=== PATIENT | female | born 1965 | race Caucasian/White ===

== ENCOUNTER → 2017-01-11 | Outpatient (CLI) | payer BC ==
[2016-08-09 09:00] VITALS: BP 126/90
[2017-01-11 07:43] LABS: BLOOD UREA NITROGEN 9 mg/dL (7-18); CALCIUM 8.9 mg/dL (8.5-10.1); CARBON DIOXIDE 26.5 mmol/L (21-32); CHLORIDE 103 mmol/L (98-107); CREATININE 0.78 mg/dL (0.55-1.02); GLUCOSE 94 mg/dL (65-99); SODIUM 138 mmol/L (136-145); eGFR BLACK RACES > 60 (>60); eGFR NON BLACK RACES > 60 (>60)
== END ==
LOC: LAB 07:00
PROVIDERS: ATTEND Internal Medicine Endocrinology, Diabetes & Metabolism
DX: E87.6 Hypokalemia (principal)
CPT/HCPCS: 36415; 80048

== ENCOUNTER → 2017-04-18 | Outpatient (CLI) | payer BC ==
[2016-08-09 09:00] VITALS: BP 126/90
[2017-04-18 08:52] LABS: BLOOD UREA NITROGEN 11 mg/dL (7-18); CALCIUM 9.2 mg/dL (8.5-10.1); CARBON DIOXIDE 28.7 mmol/L (21-32); CHLORIDE 102 mmol/L (98-107); CREATININE 0.92 mg/dL (0.55-1.02); SODIUM 139 mmol/L (136-145); TSH (3RD GENERATION) 0.796 uIU/mL (0.358-3.74); eGFR BLACK RACES > 60 (>60); eGFR NON BLACK RACES > 60 (>60)
== END ==
LOC: LAB 08:12
PROVIDERS: ATTEND Internal Medicine Endocrinology, Diabetes & Metabolism
DX: E87.6 Hypokalemia (principal); E06.3 Autoimmune thyroiditis
CPT/HCPCS: 36415; 80048; 84443

== ENCOUNTER → 2017-06-09 | Outpatient (CLI) | payer BC ==
[2016-08-09 09:00] VITALS: BP 126/90
[2017-06-09 08:41] LABS: BLOOD UREA NITROGEN 12 mg/dL (7-18); CALCIUM 9.5 mg/dL (8.5-10.1); CARBON DIOXIDE 28.2 mmol/L (21-32); CHLORIDE 101 mmol/L (98-107); CREATININE 0.89 mg/dL (0.55-1.02); SODIUM 138 mmol/L (136-145); TSH (3RD GENERATION) 0.974 uIU/mL (0.358-3.74); eGFR BLACK RACES > 60 (>60); eGFR NON BLACK RACES > 60 (>60)
== END ==
LOC: LAB 07:27
PROVIDERS: ATTEND Internal Medicine Endocrinology, Diabetes & Metabolism
DX: E06.3 Autoimmune thyroiditis (principal); E87.6 Hypokalemia
CPT/HCPCS: 36415; 80048; 84443

== ENCOUNTER → 2017-07-25 | Outpatient (CLI) | payer BC ==
[2016-08-09 09:00] VITALS: BP 126/90
--- NOTE | 2017-07-26 17:09 | MG ---
HISTORY: SCREENING Comparison: Multiple priors dating back to February 01, 2009 FINDINGS: Bilateral CC and MLO projections of the right and left breast were obtained. Heterogeneously dense f ibroglandular tissue is seen to be present. The right breast is mammographically stable. On the left , there is a possible new 7 mm nodule in the lateral breast at mid to posterior depth likely in the u pper outer quadrant best seen on the craniocaudal view and which could reflect a benign cyst or intra mammary lymph node but for which further imaging evaluation is recommended given the apparent interva l change. No skin thickening or nipple retraction is appreciated. No pathological lymphadenopathy can be identified. IMPRESSION: Possible new lateral left breast nodule for which follow-up spot magnification and mL vi ews are recommended. If the findings persist, targeted sonography is recommended. ACR CATEGORY 0 - assessment incomplete; additional imaging recommended. Diagnostic CAD was utilized and reviewed. * 0 (ZERO) - ASSESSMENT INCOMPLETE; ADDITIONAL IMAGING IS NEEDED. * 1/1 (ONE) - NEGATIVE. * 2/II (TWO) - BENIGN FINDINGS. * 3/III (THREE) - PROBABLY BENIGN FINDING; SHORT INTERVAL FOLLOW-UP SUGGESTED. * 4/IV (FOUR) - SUSPICIOUS ABNORMALITY; BIOPSY SHOULD BE CONSIDERED. * 5/V - HIGHLY SUSPICIOUS OF MALIGNANCY; BIOPSY SHOULD BE PERFORMED. A NEGATIVE X-RAY REPORT SHOULD NOT DELAY BIOPSY IF A DOMINANT OR CLINICALLY SUSPICIOUS MASS IS PRESENT; 4 TO 8 PERCENT OF CANCERS ARE NOT IDENTIFIED BY X-RAY. A NEGA TIVE REPORT MAY REINFORCE THE CLINICAL IMPRESSION. ADENOSIS AND DENSE BREASTS MAY OBSCURE AN UNDERLY ING NEOPLASM. Reported By:
== END ==
LOC: RAD 09:59
PROVIDERS: ATTEND Obstetrics & Gynecology
DX: Z12.31 Encounter for screening mammogram for malignant neoplasm of breast (principal); R92.8 Other abnormal and inconclusive findings on diagnostic imaging of breast
CPT/HCPCS: 77067

== ENCOUNTER → 2017-08-27 | Outpatient (CLI) | payer BC ==
[2016-08-09 09:00] VITALS: BP 126/90
--- NOTE | 2017-08-27 17:00 | US ---
HISTORY: Abnormal screening mammography with left breast asymmetry Left breast digital diagnostic mammography with CAD and left breast ultrasound. Comparison: Multiple previous exams dating back to February 01, 2009 FINDINGS: Mammogram: Spot magnification and mL views of the left breast were obtained. Heterogeneously dense f ibroglandular tissue is seen to be present with a persistent 7 mm nodule in the lateral posterior felicia ast only definitely identified on the craniocaudal view with a few irregular ill-defined margins whic h will be correlated with ultrasound. No skin thickening or nipple retraction is appreciated. No p athological lymphadenopathy can be identified. Ultrasound: Multiple grayscale and color Doppler images of the lateral left breast were obtained from 1-5 o'clock. At 4 o'clock approximately 4 cm from the nipple, there is a horizontally oriented april hly marginated and well circumscribed 7 mm hypoechoic nodule with posterior acoustical enhancement an d no internal Doppler flow representing either a complex cyst with septation/debris versus intramamma ry lymph node and which could correspond to the mammographic findings. IMPRESSION: Persistent lateral posterior left breast nodule with a few irregular margins which could correspond to a mildly complex cyst or intramammary lymph node sonographically but for which six-mon th follow-up left breast mammography is recommended given the lack of completely benign mammographic features. ACR CATEGORY 3 - probably benign findings; short interval follow-up suggested. * 0 (ZERO) - ASSESSMENT INCOMPLETE; ADDITIONAL IMAGING IS NEEDED. * 1/1 (ONE) - NEGATIVE. * 2/II (TWO) - BENIGN FINDINGS. * 3/III (THREE) - PROBABLY BENIGN FINDING; SHORT INTERVAL FOLLOW-UP SUGGESTED. * 4/IV (FOUR) - SUSPICIOUS ABNORMALITY; BIOPSY SHOULD BE CONSIDERED. * 5/V - HIGHLY SUSPICIOUS OF MALIGNANCY; BIOPSY SHOULD BE PERFORMED. A NEGATIVE X-RAY REPORT SHOULD NOT DELAY BIOPSY IF A DOMINANT OR CLINICALLY SUSPICIOUS MASS IS PRESENT; 4 TO 8 PERCENT OF CANCERS ARE NOT IDENTIFIED BY X-RAY. A NEGA TIVE REPORT MAY REINFORCE THE CLINICAL IMPRESSION. ADENOSIS AND DENSE BREASTS MAY OBSCURE AN UNDERLY ING NEOPLASM. Reported By:
== END ==
LOC: RAD 11:24
PROVIDERS: ATTEND Obstetrics & Gynecology
DX: R92.8 Other abnormal and inconclusive findings on diagnostic imaging of breast (principal)
CPT/HCPCS: 76642; 77065